=== PATIENT | male | born 1995 | race Two or more races ===

== ENCOUNTER 2016-05-21 22:16 | Emergency (ER) | payer SELFPAY ==
[~2016-05-21] VITALS: Ht 172.7 cm; Wt 65.8 kg
--- NOTE | 2016-05-21 22:37 | Emergency Room Report ---
History of Present Illness General Chief Complaint: To Be Triaged Source: Patient Present Illness HPI Is a 20-year-old male with a history of asthma. He has been frequent attack. He presents with chief complaint of 7 day history of fever or chills. Nonproductive cough. Have nasal congestion and sinus headache. Pain from head to toe. Taking [id number] medication and not helping. Denies any other complaint. Allergies: Coded Allergies: CHOCOLATE FLAVOR (Verified Allergy, Unknown, 05/21/16) Patient History Past Medical History: see triage record, old chart reviewed, asthma Past Surgical History: none Pertinent Family History: none Social History: Denies: smoking Immunizations: other Reviewed Nursing Documentation: PMH: Agreed, PSxH: Agreed Review of Systems Constitutional: Reports: fever Eye: Denies: blurred vision, eye pain ENT: Denies: ear pain, nose congestion, throat swelling Respiratory: Reports: cough, Denies: shortness of breath Cardiovascular: Denies: chest pain, palpitations Gastrointestinal: Denies: abdominal pain, diarrhea, nausea, vomiting Musculoskeletal: Denies: back pain, joint pain Skin: Denies: rash Neurological: Denies: headache, numbness Endocrine: Denies: increased thirst, increased urine Hematologic/Lymphatic: Denies: easy bruising All Other Systems: negative except mentioned in HPI Physical Exam vitals with fever Sp02 EP Interpretation: reviewed, normal General Appearance: well appearing, no apparent distress, alert Head: normocephalic, atraumatic Eyes: bilateral eye EOMI, bilateral eye PERRL ENT: hearing grossly normal, normal pharynx Neck: full range of motion, supple, no meningismus Respiratory: chest non-tender, lungs clear, normal breath sounds Cardiovascular #1: regular rate, rhythm, no murmur Gastrointestinal: normal bowel sounds, non tender, no mass, no organomegaly, no bruit, non-distended Musculoskeletal: back normal, gait/station normal, normal range of motion Psychiatric: mood/affect normal Skin: warm/dry Medical Decision Making Diagnostic Impression: Primary Impression: Influenza ER Course Patient presents with influenza-like illness. Is risk factor is asthma. He looks well however. No wheezing. His been 7 days so I proceed of Tamiflu is minimal. Because of asthma I will going to put him on Tamiflu. No evidence of pneumonia. Chest x-ray clear. No evidence of ACS, PE, dissection to name a few. We'll treat symptomatically also. Chest X-Ray Diagnostic Results EP Interpretation: Yes Findings: no consolidation, no effusion, no pneumothorax, no acute cardiopulmonary disease Number of Views: 1 Status: improved Disposition: HOME, SELF-CARE Condition: Stable Scripts Ibuprofen* (MOTRIN*) 600 Mg Tablet 600 MG ORAL THREE TIMES A DAY, #30 TAB 0 Refills Prov: DANIEL MARINO M.D. 05/21/16 Pseudoephedrine Hcl* (NEXAFED*) 30 Mg Tablet 60 MG ORAL Q6H Y for congestion, #30 TAB Prov: DANIEL MARINO M.D. 05/21/16 Oseltamivir Phosphate (Tamiflu) 75 Mg Capsule 75 MG ORAL TWICE A DAY, #14 CAP Prov: DANIEL MARINO M.D. 05/21/16 Additional Instructions: Followup with your DrCharlie in 2-3 days. Return if symptom worsen or DANIEL MARINO M.D. May 21, 2016 22:37
[2016-05-21 22:56] VITALS: BP 110/62
[2016-05-21] MEDS ORDERED: PredniSONE 20mg tab ORAL ONE (23:00)
[2016-05-21] MEDS ORDERED: Acetaminophen 500mg (ES) tab ORAL ONE (23:00)
[2016-05-21] MEDS ORDERED: NEXAFED30 MG ORAL (23:39)
[2016-05-21] MEDS ORDERED: IBUPROFEN600 MG ORAL (23:39)
[2016-05-21] MEDS ORDERED: TAMIFLU75 MG ORAL (23:39)
[2016-05-21 23:56] VITALS: BP 100/65
--- NOTE | 2016-05-22 10:24 | Diagnostic Imaging Report ---
Indication: SOB Technique: One view of the chest Comparison: none Findings: Lungs and pleural spaces are clear. Heart size is normal. Impression: No acute process
== END 2016-05-21 23:56 | disposition home or self-care (01) ==
LOC: EMR 22:56
DX: J11.1 Influenza due to unidentified influenza virus with other respiratory manifestations (principal); R50.9 Fever, unspecified; R05 Cough; R09.81 Nasal congestion; R51 Headache
CPT/HCPCS: 71010; 99284